=== PATIENT | male | born 1975 | race Caucasian/White ===

== ENCOUNTER 2021-06-30 11:30 | Outpatient (REF) | payer OTHER, SELFPAY ==
--- NOTE | ~2021-06-30 | XR_ITS ---
EXAMINATION: XR SHOULDER, RIGHT CLINICAL INFORMATION: Enthesopathies COMPARISON: Right shoulder x-rays December 03, 2018 TECHNIQUE: Three views of the right shoulder. FINDINGS: Visualized portion of the proximal right humerus demonstrate no fracture. Humeral head demonstrates good articulation with the glenoid fossa. Prominent soft tissue calcification again noted abutting the greater tuberosity. There are mild degenerative changes of the acromioclavicular joint. Visualized right-sided ribs and lung parenchyma are unremarkable. XR/XR shoulder RT min 2V IMPRESSION: -Calcific tendinosis. -No fracture or dislocation.
== END 2021-06-30 11:31 | disposition home or self-care (01) ==
LOC: HO.HMGCX 11:30
PROVIDERS: Absent Provider Orthopaedic Surgery; PCP Internal Medicine; Visit Provider Physician Assistant Medical
DX: M77.8 Other enthesopathies, not elsewhere classified (principal)
CPT/HCPCS: 73030

== ENCOUNTER → 2021-07-12 14:48 | Outpatient (BNVA) | payer OTHER, SELFPAY | PROVIDERS: PCP Internal Medicine; Visit Provider Orthopaedic Surgery | DX: M75.31 Calcific tendinitis of right shoulder (principal); M10.9 Gout, unspecified; Z88.6 Allergy status to analgesic agent | CPT/HCPCS: 20610; 99212; J1100 ==

== ENCOUNTER 2021-07-30 11:55 | Outpatient (REF) | payer OTHER, SELFPAY ==
[2021-07-30 14:17] LABS: Alanine Aminotransferase 64 U/L (0-40); Albumin Level 4.5 g/dL (3.5-5.0); Alkaline Phosphatase 78 U/L (39-117); Anion Gap 14 (12-20); Aspartate Amino Transferase 27 U/L (5-37); Bilirubin Total 0.6 mg/dL (0.0-1.0); Blood Urea Nitrogen 11 mg/dL (9-16); Calcium 9.9 mg/dL (8.4-10.2); Carbon Dioxide 26 mmol/L (22-29); Chloride 103 mmol/L (96-108); Cholesterol 197 mg/dL; Estimated Glomerular Filt Rate > 60; Glucose Fasting 91 mg/dL (60-99); HDL Cholesterol 51 mg/dL; LDL Cholesterol Calculated 122 mg/dl; Sodium 139 mmol/L (135-145); Total Protein 7.3 g/dL (6.5-8.0); Triglycerides 120 mg/dL
== END 2021-07-30 11:56 | disposition home or self-care (01) ==
LOC: HO.HMGCLDS 11:55
PROVIDERS: Visit Provider Internal Medicine
DX: Z00.00 Encounter for general adult medical examination without abnormal findings (principal)
CPT/HCPCS: 36415; 80053; 80061